=== PATIENT | male | born 1965 | race Hispanic/Latino ===

== ENCOUNTER 2020-09-29 08:48 | Outpatient (CLI) | payer OTHER | END 2020-09-29 08:49 | disposition home or self-care (01) | LOC: CSHMRI 08:48 | PROVIDERS: ATTEND Internal Medicine | DX: M47.12 Other spondylosis with myelopathy, cervical region (principal); M48.02 Spinal stenosis, cervical region; M47.812 Spondylosis without myelopathy or radiculopathy, cervical region | CPT/HCPCS: 72156 ==

== ENCOUNTER 2024-05-13 08:58 | Outpatient (CLI) | payer BC | END 2024-05-13 08:59 | disposition home or self-care (01) | LOC: CSHSLEEP 08:58 | PROVIDERS: ATTEND Internal Medicine | DX: G47.9 Sleep disorder, unspecified (principal); R53.83 Other fatigue; K21.9 Gastro-esophageal reflux disease without esophagitis; I51.9 Heart disease, unspecified; R06.83 Snoring; R35.1 Nocturia; G47.33 Obstructive sleep apnea (adult) (pediatric) | CPT/HCPCS: 95811 ==

== ENCOUNTER 2024-06-07 16:39 | Emergency (ER) | payer BC ==
[2024-06-07 18:01] LABS: HIV (1/2) Antibody/Antigen Non-Reactive (NonReactive); HIV 1/2 INDEX 0.07 S/CO (<1.00)
[2024-06-07 22:00] LABS: Hep B Surf AB REACTIVE (NonReactive); Hep C IgG Ab NONREACTIVE S/CO (NonReactive); Hep C Index 0.11 S/CO (0-0.79)
== END 2024-06-07 17:35 ==
LOC: CSHERS 16:39
DX: Z20.6 Contact with and (suspected) exposure to human immunodeficiency virus [HIV] (principal); I10 Essential (primary) hypertension; W46.1XXA Contact with contaminated hypodermic needle, initial encounter; Y93.89 Activity, other specified
CPT/HCPCS: 36415; 86706; 86803; 87389; 99283